=== PATIENT | male | born 1970 | race Caucasian/White ===

== ENCOUNTER → 2016-11-29 | Outpatient (CLI) | payer BC ==
--- NOTE | 2016-11-29 12:37 | REP ---
Right wrist series: Four views. History: Pain in the right wrist. Injury in a fall. Findings: Four views right wrist show cyst formation in the triquetrum, distal ulna, and spur formation in the distal radioulnar joint consistent with degenerative change. No fracture or subluxation is seen. There is old post-traumatic deformity of the distal end of the fifth metacarpal. Impression: No acute fracture noted. Signed by Yvon Storey MD 11/29/2016 02:07 P
== END ==
LOC: M ADAMS 12:05
PROVIDERS: ATTEND Physician Assistant
DX: M25.531 Pain in right wrist (principal)

== ENCOUNTER 2016-12-14 05:21 | Emergency (ER) | payer BC ==
[2016-12-14] MEDS ORDERED: ONDANSETRON 4MG/2ML VIAL (J2405) As Ordered ONE (07:37)
[2016-12-14 07:48] LABS: BASO % 0.2 % (0.0-1.0); EOS # 0.1 K/mm3 (0.0-0.50); EOS % 1.3 % (0.0-3.0); LARGE UNSTAINED CELL # 0.1 K/mm3 (0.0-0.4); LARGE UNSTAINED CELL % 1.3 % (0.0-4.0); LYMPH # 0.5 K/mm3 (1.5-4.5); MEAN CORPUSCULAR HGB CONC 34.1 g/dl (32.0-36.5); MEAN CORPUSCULAR VOLUME 90.8 fl (80.0-96.0); MONO # 0.4 K/mm3 (0.0-0.8); NEUTROPHILS # 9.3 K/mm3 (1.8-7.7); NEUTROPHILS % 88.2 % (36.0-66.0); PLATELET COUNT, AUTOMATED 264 k/mm3 (150-450); RED CELL DISTRIBUTION WIDTH 12.8 % (11.5-14.5); WHITE BLOOD COUNT 10.5 K/mm3 (4.0-10.0)
[2016-12-14 07:52] LABS: ALBUMIN 4.1 GM/DL (3.2-5.2); ALBUMIN/GLOBULIN RATIO 1.32 (1.00-1.93); ALKALINE PHOSPHATASE 99 U/L (45-117); ALT/SGPT 28 U/L (12-78); ANION GAP 9 MEQ/L (8-16); AST/SGOT 22 U/L (15-37); BILIRUBIN,DIRECT 0.2 MG/DL (0.0-0.2); BILIRUBIN,TOTAL 0.9 MG/DL (0.2-1.0); BLOOD UREA NITROGEN 21 MG/DL (7-18); CALCIUM LEVEL 9.1 MG/DL (8.5-10.1); CARBON DIOXIDE LEVEL 26 MEQ/L (21-32); CHLORIDE LEVEL 106 MEQ/L (98-107); GLOMERULAR FILTRATION RATE > 60.0 (>60); GLUCOSE, FASTING 141 MG/DL (70-105); SODIUM LEVEL 141 MEQ/L (136-145); TOTAL PROTEIN 7.2 GM/DL (6.4-8.2)
--- NOTE | 2016-12-14 09:01 | EDDOCDS ---
Nurse's Notes [facility] Name: Fred Angulo Age: 46 yrs Sex: Male : 1970 Arrival Date: 12/14/2016 Time: 05:21 Bed 5 Private MD: Diagnosis: Nausea and vomiting Presentation: 12/14 05:28 Presenting complaint: Patient states: he started with nausea and vomiting no diarrhea cz about 7-8 hours ago complains of feeling shaky hyperventilating in triage.pt denies abdominal pain has epigastric pain from vomiting. Adult Sepsis Screening: The patient does not have new or worsening altered mentation. Patient has a respiratory rate of greater than or equal to 22 (1 point). Systolic blood pressure is greater than 100. Patient has a qSOFA score of 0- Negative Sepsis Screen. Suicide/Homicide risk assessment- the patient denies having any suicidal and/or homicidal ideations and does not present with any other emotional, behavioral or mental health complaints. Status: Patient is not a shipping services sales representative or dependent. Transition of care: patient was not received from another setting of care. 05:28 Acuity: MABLE Level 3 cz 05:28 Method Of Arrival: Wheelchair cz Triage Assessment: 05:32 General: Appears distressed, uncomfortable, Behavior is anxious. Pain: Location: chest. cz HIV screening NA for this visit Offered previously. Historical: - Allergies: No known drug Allergies; - Home Meds: 1. aspirin 81 mg Oral chew 1 tab once daily 2. Albuterol Inhl as needed 3. Bupropion Oral once daily 4. Claritin 10 mg Oral tab 1 tab once daily 5. Lisinopril Oral once daily 6. Prilosec 20 mg oral cpDR once daily - PMHx: Anxiety; GERD; Hypertension; Seasonal Allergies; - PSHx: right bicept repair; - Social history: Smoking status: Patient states former smoker of tobacco. No barriers to communication noted, The patient speaks fluent Frisian, Speaks appropriately for age. - Family history: Not pertinent. - : The pt / caregiver states he / she is not on anticoagulants. Home medication list is obtained from the patient. - Exposure Risk Screening:: None identified. Screenin:03 Screening information is obtained from the patient. Fall risk: No risks identified. ko2 Assistance ADL's: requires no assistance with activities of daily living. Abuse/DV Screen: The patient / caregiver reports he/she is: not in a situation that causes fear, pain or injury. Nutritional screening: No deficits noted. Advance Directives: Currently, there is no health care proxy. There is no active DNR order. There is no living will. There is no Power of Autocutter. home support is adequate. Assessment: 06:03 General: Appears distressed, Behavior is anxious. Pain: Denies pain. Neurological: ko2 Level of Consciousness is awake, alert. Respiratory: Airway is patent Respiratory effort is even, unlabored, Respiratory pattern is regular, symmetrical. GI: Abdomen is non- distended Bowel sounds present X 4 quads. Abd is soft and non tender. Derm: No deficits noted. 07:43 General: Appears in no apparent distress, Behavior is appropriate for age, cooperative. srm Pain: Pain currently is 1 out of 10 on a pain scale. Neurological: No deficits noted. EENT: No deficits noted. Respiratory: Airway is patent Respiratory effort is even, unlabored, Breath sounds are clear bilaterally. GI: Abdomen is non- distended Bowel sounds present X 4 quads. Abd is soft and non tender X 4 quads. 08:21 General: pt states he feels much better. popsicle given per md. srm 08:40 General: PT TOLERATED POPSICLE. . srm 08:59 Reassessment: Patient appears in no apparent distress at this time. Patient states srm feeling better. Patient states symptoms have improved. General: Appears in no apparent distress, Behavior is appropriate for age, cooperative. Vital Signs: 05:32 BP 152 / 72; Pulse 97; Resp 20; Temp 97.7; Pulse Ox 100% on R/A; Weight 102.06 kg; cz Height 5 ft. 11 in. (180.34 cm); 08:19 BP 127 / 73; Pulse 86; Resp 18; Pulse Ox 98% on R/A; srm 08:59 BP 126 / 70; Pulse 86; Resp 18; Temp 100.1; Pulse Ox 98% ; Pain 1/10; srm 05:32 Body Mass Index 31.38 (102.06 kg, 180.34 cm) cz Vitals: 05:32 Log In Time: December 14, 2016 at 05:20. ED Course: 05:22 Patient visited by Allison Morgan. gjb 05:22 Patient moved to Waiting gjb 05:24 Patient moved to Triage 1 cz 05:30 Triage Initiated cz 05:44 Patient moved to 5 cz 06:06 Patient visited by Daniella Meier RN. ko2 06:16 Inserted saline lock: 20 gauge in left antecubital area and blood collected. The ko2 patient tolerated the procedure well. 07:00 Patient visited by Daniella Meier RN. ko2 07:06 Report received from Loraine Delcid RN. srm 07:21 Vargas Luong MD is Attending Physician. br1 07:31 Patient visited by Vargas Luong MD. br1 07:36 Lipase Sent. srm 07:36 Liver Profile Sent. srm 07:36 BMP Sent. srm 07:36 CBC with Diff Sent. srm 07:43 The patient / caregiver is instructed regarding the plan of care and ED course. srm 07:44 Patient visited by Nanette Foster RN. srm 08:19 Patient visited by Nanette Foster RN. srm 08:22 Patient visited by Nanette Foster RN. srm 08:41 Patient visited by Nanette Foster RN. srm 08:48 Patient visited by Vargas Luong MD. br1 08:51 Arvin Cervantes MD is Referral Physician. br1 08:59 Discontinued lock intact, bleeding controlled, pressure dressing applied, No srm redness/swelling at site. No procedures done that require assistance. Administered Medications: 07:43 Drug: NS 0.9% 1000 ml [sodium chloride 0.9 % intravenous solution] Route: IV; Rate: srm bolus; Site: left antecubital; 08:59 Follow up: BP 126 / 70; Pulse 86 bpm; Resp 18 bpm; Temp 100.1; Pulse Ox 98% ; Pain 1/10 srm Adult; IV Status: Completed infusion 07:43 Drug: Ondansetron 4 mg [ondansetron HCl 2 mg/mL intravenous solution (2 mL)] Route: srm IVP; Site: left antecubital; 08:19 Follow up: BP 127 / 73; Pulse 86 bpm; Resp 18 bpm; Pulse Ox 98% RA; Response: Nausea is srm resolved 08:59 Not Given (dischraged homee): NS 0.9% 1000 ml IV at 150 mL/hr continuous srm Intake: 08:41 PO: 90.00ml; Total: 90.00ml. srm 08:59 IV: 1000.00ml (NS); Total: 1090.00ml. srm 08:41 popsicle srm Order Results: Lab Order: CBC with Diff; SPEC'M 12/14/16 06:02 Test: WHITE BLOOD COUNT; Value: 10.5; Range: 4.0-10.0; Abnormal: Above high normal; Units: K/mm3; Status: F Test: RED BLOOD COUNT; Value: 5.23; Range: 4.30-6.10; Units: M/mm3; Status: F Test: HEMOGLOBIN; Value: 16.2; Range: 14.0-18.0; Units: g/dl; Status: F Test: HEMATOCRIT; Value: 47.4; Range: 42.0-52.0; Units: %; Status: F Test: MEAN CORPUSCULAR VOLUME; Value: 90.8; Range: 80.0-96.0; Units: fl; Status: F Test: MEAN CORPUSCULAR HEMOGLOBIN; Value: 31.0; Range: 27.0-33.0; Units: pg; Status: F Test: MEAN CORPUSCULAR HGB CONC; Value: 34.1; Range: 32.0-36.5; Units: g/dl; Status: F Test: RED CELL DISTRIBUTION WIDTH; Value: 12.8; Range: 11.5-14.5; Units: %; Status: F Test: PLATELET COUNT, AUTOMATED; Value: 264; Range: 150-450; Units: k/mm3; Status: F Test: NEUTROPHILS %; Value: 88.2; Range: 36.0-66.0; Abnormal: Above high normal; Units: %; Status: F Test: LYMPH %; Value: 5.0; Range: 24.0-44.0; Abnormal: Below low normal; Units: %; Status: F Test: MONO %; Value: 4.0; Range: 0.0-5.0; Units: %; Status: F Test: EOS %; Value: 1.3; Range: 0.0-3.0; Units: %; Status: F Test: BASO %; Value: 0.2; Range: 0.0-1.0; Units: %; Status: F Test: LARGE UNSTAINED CELL %; Value: 1.3; Range: 0.0-4.0; Units: %; Status: F Test: NEUTROPHILS #; Value: 9.3; Range: 1.8-7.7; Abnormal: Above high normal; Units: K/mm3; Status: F Test: LYMPH #; Value: 0.5; Range: 1.5-4.5; Abnormal: Below low normal; Units: K/mm3; Status: F Test: MONO #; Value: 0.4; Range: 0.0-0.8; Units: K/mm3; Status: F Test: EOS #; Value: 0.1; Range: 0.0-0.50; Units: K/mm3; Status: F Test: BASO #; Value: 0.0; Range: 0.0-0.2; Units: K/mm3; Status: F Test: LARGE UNSTAINED CELL #; Value: 0.1; Range: 0.0-0.4; Units: K/mm3; Status: F Lab Order: [facility]; SPEC'M 12/14/16 06:02 Test: GLUCOSE, FASTING; Value: 141; Range: 70-105; Abnormal: Above high normal; Units: MG/DL; Status: F Test: BLOOD UREA NITROGEN; Value: 21; Range: 7-18; Abnormal: Above high normal; Units: MG/DL; Status: F Test: CREATININE FOR GFR; Value: 1.10; Range: 0.70-1.30; Units: MG/DL; Status: F Test: GLOMERULAR FILTRATION RATE; Value: > 60.0; Range: >60; Status: F Test: SODIUM LEVEL; Value: 141; Range: 136-145; Units: MEQ/L; Status: F Test: POTASSIUM SERUM; Value: 4.0; Range: 3.5-5.1; Units: MEQ/L; Status: F Test: CHLORIDE LEVEL; Value: 106; Range: 98-107; Units: MEQ/L; Status: F Test: CARBON DIOXIDE LEVEL; Value: 26; Range: 21-32; Units: MEQ/L; Status: F Test: ANION GAP; Value: 9; Range: 8-16; Units: MEQ/L; Status: F Test: CALCIUM LEVEL; Value: 9.1; Range: 8.5-10.1; Units: MG/DL; Status: F Test Note: ; Units are mL/min/1.73 m2 Chronic Kidney Disease Staging per NKF: Stage I & II GFR >=60 Normal to Mildly Decreased Stage III GFR 30-59 Moderately Decreased Stage IV GFR 15-29 Severely Decreased Stage V GFR <15 Very Little GFR Left ESRD GFR <15 on HAND [employer]IG[employer]ER Lab Order: Liver Profile; SPEC'M 12/14/16 06:02 Test: AST/SGOT; Value: 22; Range: 15-37; Units: U/L; Status: F Test: ALT/SGPT; Value: 28; Range: 12-78; Units: U/L; Status: F Test: ALKALINE PHOSPHATASE; Value: 99; Range: 45-117; Units: U/L; Status: F Test: BILIRUBIN,TOTAL; Value: 0.9; Range: 0.2-1.0; Units: MG/DL; Status: F Test: BILIRUBIN,DIRECT; Value: 0.2; Range: 0.0-0.2; Units: MG/DL; Status: F Test: TOTAL PROTEIN; Value: 7.2; Range: 6.4-8.2; Units: GM/DL; Status: F Test: ALBUMIN; Value: 4.1; Range: 3.2-5.2; Units: GM/DL; Status: F Test: ALBUMIN/GLOBULIN RATIO; Value: 1.32; Range: 1.00-1.93; Status: F Lab Order: Lipase; SPEC'M 12/14/16 06:02 Test: LIPASE; Value: 98; Range: 73-393; Units: U/L; Status: F Outcome: 08:51 Discharge ordered by Provider. br1 08:59 Discharge Assessment: Patient awake, alert and oriented x 3. No cognitive and/or srm functional deficits noted. Patient verbalized understanding of disposition instructions. patient administered narcotics - no. The following High Risk Discharge criteria are identified: None. Discharged to home ambulatory, with significant other. Condition: stable Condition: improved. Discharge instructions given to patient, Instructed on discharge instructions, follow up and referral plans. medication usage, diet, Demonstrated understanding of instructions, medications, Pt was receptive of discharge instructions/ teaching. Prescriptions given X 1. No special radiology studies were completed. Property sent home with patient. 09:00 Patient left the ED. srm Signatures: Nanette Foster, RN RN srm Omer [place], RN RN Vargas Acosta MD MD br1 Daniella Meier RN RN [email or web address] Allison Morgan MTDD
--- NOTE | 2016-12-14 09:01 | EDDOCDS ---
Physician Documentation [facility] Name: Fred Angulo Age: 46 yrs Sex: Male : 1970 Arrival Date: 12/14/2016 Time: 05:21 Bed 5 Private MD: Disposition: 12/14/16 08:51 Discharged to Home/Self Care. Impression: Nausea and vomiting. - Condition is Stable. - Discharge Instructions: Nausea and Vomiting. - Prescriptions for ZOFRAN ODT 4 mg - dissolve 1 tablet by ORAL route 4 times per day As needed do not chew, do not swallow whole; 10 tablet. - Medication Reconciliation, Local Pharmacy Hours form. - Follow up: Arvin Cervantes MD; When: 2 - 3 days; Reason: Recheck today's complaints. - Problem is new. - Symptoms have improved. - Notes: You were seen in the ED for nausea and vomiting. Bloodwork showed no other acute findings. You were treated and improved with fluids and medications as well. As you are feeling better you may return home to follow up with your primary doctor for recheck this week. Call your doctor to arrange to be seen. Take Zofran as needed for nausea and encourage plenty of clear liquids, then advance your diet as tolerated. Return to the ED for any abdominal pain, fever, blood in the vomit or stool, inability to tolerate oral fluids or any other concerns. Historical: - Allergies: No known drug Allergies; - Home Meds: 1. aspirin 81 mg Oral chew 1 tab once daily 2. Albuterol Inhl as needed 3. Bupropion Oral once daily 4. Claritin 10 mg Oral tab 1 tab once daily 5. Lisinopril Oral once daily 6. Prilosec 20 mg oral cpDR once daily - PMHx: Anxiety; GERD; Hypertension; Seasonal Allergies; - PSHx: right bicept repair; - Social history: Smoking status: Patient states former smoker of tobacco. No barriers to communication noted, The patient speaks fluent Korean, Speaks appropriately for age. - Family history: Not pertinent. - : The pt / caregiver states he / she is not on anticoagulants. Home medication list is obtained from the patient. - Exposure Risk Screening:: None identified. Vital Signs: 12/14 05:32 BP 152 / 72; Pulse 97; Resp 20; Temp 97.7; Pulse Ox 100% on R/A; Weight 102.06 kg / 225 cz lbs; Height 5 ft. 11 in. (180.34 cm); 08:19 BP 127 / 73; Pulse 86; Resp 18; Pulse Ox 98% on R/A; srm 08:59 BP 126 / 70; Pulse 86; Resp 18; Temp 100.1; Pulse Ox 98% ; Pain 1/10; srm 05:32 Body Mass Index 31.38 (102.06 kg, 180.34 cm) cz MDM: 07:31 IV Saline Lock ordered. br1 07:31 NS 0.9% 1000 ml IV at bolus once ordered. br1 07:31 NS 0.9% 1000 ml IV at 150 mL/hr continuous ordered. br1 07:31 Ondansetron 4 mg IVP once ordered. br1 07:32 CBC with Diff Ordered. EDMS 07:32 BMP Ordered. EDMS 07:32 Liver Profile Ordered. EDMS 07:32 Lipase Ordered. EDMS 08:09 Financial registration complete. lg 08:22 Fluid Challenge ordered. srm 08:36 CBC with Diff Reviewed. br1 08:36 BMP Reviewed. br1 08:36 Liver Profile Reviewed. br1 08:36 Lipase Reviewed. br1 Administered Medications: 07:43 Drug: NS 0.9% 1000 ml [sodium chloride 0.9 % intravenous solution] Route: IV; Rate: srm bolus; Site: left antecubital; 08:59 Follow up: BP 126 / 70; Pulse 86 bpm; Resp 18 bpm; Temp 100.1; Pulse Ox 98% ; Pain 1/10 srm Adult; IV Status: Completed infusion 07:43 Drug: Ondansetron 4 mg [ondansetron HCl 2 mg/mL intravenous solution (2 mL)] Route: srm IVP; Site: left antecubital; 08:19 Follow up: BP 127 / 73; Pulse 86 bpm; Resp 18 bpm; Pulse Ox 98% RA; Response: Nausea is srm resolved 08:59 Not Given (dischraged homee): NS 0.9% 1000 ml IV at 150 mL/hr continuous srm Signatures: Dispatcher [employer] EDMS Nanette Foster RN RN srm Omer Samayoa RN RN cz Perla Mills, Reg Reg lg Vargas Luong MD MD br1 [place],Daniella,RN RN ko2 MTDD
--- NOTE | 2016-12-16 10:02 | EDDOCDS ---
Nurse's Notes [facility] Name: Fred Angulo Age: 46 yrs Sex: Male : 1970 Arrival Date: 12/14/2016 Time: 05:21 Bed 5 Private MD: Diagnosis: Nausea and vomiting Presentation: 12/14 05:28 Presenting complaint: Patient states: he started with nausea and vomiting no diarrhea cz about 7-8 hours ago complains of feeling shaky hyperventilating in triage.pt denies abdominal pain has epigastric pain from vomiting. Adult Sepsis Screening: The patient does not have new or worsening altered mentation. Patient has a respiratory rate of greater than or equal to 22 (1 point). Systolic blood pressure is greater than 100. Patient has a qSOFA score of 0- Negative Sepsis Screen. Suicide/Homicide risk assessment- the patient denies having any suicidal and/or homicidal ideations and does not present with any other emotional, behavioral or mental health complaints. Status: Patient is not a floor service worker spring or dependent. Transition of care: patient was not received from another setting of care. 05:28 Acuity: MABLE Level 3 cz 05:28 Method Of Arrival: Wheelchair cz Triage Assessment: 05:32 General: Appears distressed, uncomfortable, Behavior is anxious. Pain: Location: chest. cz HIV screening NA for this visit Offered previously. Historical: - Allergies: No known drug Allergies; - Home Meds: 1. aspirin 81 mg Oral chew 1 tab once daily 2. Albuterol Inhl as needed 3. Bupropion Oral once daily 4. Claritin 10 mg Oral tab 1 tab once daily 5. Lisinopril Oral once daily 6. Prilosec 20 mg oral cpDR once daily - PMHx: Anxiety; GERD; Hypertension; Seasonal Allergies; - PSHx: right bicept repair; - Social history: Smoking status: Patient states former smoker of tobacco. No barriers to communication noted, The patient speaks fluent Kiswahili, Speaks appropriately for age. - Family history: Not pertinent. - : The pt / caregiver states he / she is not on anticoagulants. Home medication list is obtained from the patient. - Exposure Risk Screening:: None identified. Screenin:03 Screening information is obtained from the patient. Fall risk: No risks identified. ko2 Assistance ADL's: requires no assistance with activities of daily living. Abuse/DV Screen: The patient / caregiver reports he/she is: not in a situation that causes fear, pain or injury. Nutritional screening: No deficits noted. Advance Directives: Currently, there is no health care proxy. There is no active DNR order. There is no living will. There is no Power of Dock Superintendent. home support is adequate. Assessment: 06:03 General: Appears distressed, Behavior is anxious. Pain: Denies pain. Neurological: ko2 Level of Consciousness is awake, alert. Respiratory: Airway is patent Respiratory effort is even, unlabored, Respiratory pattern is regular, symmetrical. GI: Abdomen is non- distended Bowel sounds present X 4 quads. Abd is soft and non tender. Derm: No deficits noted. 07:43 General: Appears in no apparent distress, Behavior is appropriate for age, cooperative. srm Pain: Pain currently is 1 out of 10 on a pain scale. Neurological: No deficits noted. EENT: No deficits noted. Respiratory: Airway is patent Respiratory effort is even, unlabored, Breath sounds are clear bilaterally. GI: Abdomen is non- distended Bowel sounds present X 4 quads. Abd is soft and non tender X 4 quads. 08:21 General: pt states he feels much better. popsicle given per md. srm 08:40 General: PT TOLERATED POPSICLE. . srm 08:59 Reassessment: Patient appears in no apparent distress at this time. Patient states srm feeling better. Patient states symptoms have improved. General: Appears in no apparent distress, Behavior is appropriate for age, cooperative. Vital Signs: 05:32 BP 152 / 72; Pulse 97; Resp 20; Temp 97.7; Pulse Ox 100% on R/A; Weight 102.06 kg; cz Height 5 ft. 11 in. (180.34 cm); 08:19 BP 127 / 73; Pulse 86; Resp 18; Pulse Ox 98% on R/A; srm 08:59 BP 126 / 70; Pulse 86; Resp 18; Temp 100.1; Pulse Ox 98% ; Pain 1/10; srm 05:32 Body Mass Index 31.38 (102.06 kg, 180.34 cm) cz Vitals: 05:32 Log In Time: December 14, 2016 at 05:20. ED Course: 05:22 Patient visited by Allison Morgan. gjb 05:22 Patient moved to Waiting gjb 05:24 Patient moved to Triage 1 cz 05:30 Triage Initiated cz 05:44 Patient moved to 5 cz 06:06 Patient visited by Daniella Meier RN. ko2 06:16 Inserted saline lock: 20 gauge in left antecubital area and blood collected. The ko2 patient tolerated the procedure well. 07:00 Patient visited by Daniella Meier RN. ko2 07:06 Report received from Loraine Delcid RN. srm 07:21 Vargas Luong MD is Attending Physician. br1 07:31 Patient visited by Vargas Luong MD. br1 07:36 Lipase Sent. srm 07:36 Liver Profile Sent. srm 07:36 BMP Sent. srm 07:36 CBC with Diff Sent. srm 07:43 The patient / caregiver is instructed regarding the plan of care and ED course. srm 07:44 Patient visited by Nanette Foster RN. srm 08:19 Patient visited by Nanette Foster RN. srm 08:22 Patient visited by Nanette Foster RN. srm 08:41 Patient visited by Nanette Foster RN. srm 08:48 Patient visited by Vargas Luong MD. br1 08:51 Arvin Cervantes MD is Referral Physician. br1 08:59 Discontinued lock intact, bleeding controlled, pressure dressing applied, No srm redness/swelling at site. No procedures done that require assistance. 09:03 Patient name changed from Fred\S\Lloyd\S\Kev\S\ to Fred\S\Jt\S\Kev. EDMS 09:04 [facility] Payment Agreement was scanned into [employer] and attached to record. lg 19:45 T-Sheet-- Draft Copy was scanned into [employer] and attached to record. klr Administered Medications: 07:43 Drug: NS 0.9% 1000 ml [sodium chloride 0.9 % intravenous solution] Route: IV; Rate: srm bolus; Site: left antecubital; 08:59 Follow up: BP 126 / 70; Pulse 86 bpm; Resp 18 bpm; Temp 100.1; Pulse Ox 98% ; Pain 1/10 srm Adult; IV Status: Completed infusion 07:43 Drug: Ondansetron 4 mg [ondansetron HCl 2 mg/mL intravenous solution (2 mL)] Route: srm IVP; Site: left antecubital; 08:19 Follow up: BP 127 / 73; Pulse 86 bpm; Resp 18 bpm; Pulse Ox 98% RA; Response: Nausea is srm resolved 08:59 Not Given (dischraged homee): NS 0.9% 1000 ml IV at 150 mL/hr continuous srm Intake: 08:41 PO: 90.00ml; Total: 90.00ml. srm 08:59 IV: 1000.00ml (NS); Total: 1090.00ml. srm 08:41 popsicle srm Order Results: Lab Order: CBC with Diff; SPEC'M 12/14/16 06:02 Test: WHITE BLOOD COUNT; Value: 10.5; Range: 4.0-10.0; Abnormal: Above high normal; Units: K/mm3; Status: F Test: RED BLOOD COUNT; Value: 5.23; Range: 4.30-6.10; Units: M/mm3; Status: F Test: HEMOGLOBIN; Value: 16.2; Range: 14.0-18.0; Units: g/dl; Status: F Test: HEMATOCRIT; Value: 47.4; Range: 42.0-52.0; Units: %; Status: F Test: MEAN CORPUSCULAR VOLUME; Value: 90.8; Range: 80.0-96.0; Units: fl; Status: F Test: MEAN CORPUSCULAR HEMOGLOBIN; Value: 31.0; Range: 27.0-33.0; Units: pg; Status: F Test: MEAN CORPUSCULAR HGB CONC; Value: 34.1; Range: 32.0-36.5; Units: g/dl; Status: F Test: RED CELL DISTRIBUTION WIDTH; Value: 12.8; Range: 11.5-14.5; Units: %; Status: F Test: PLATELET COUNT, AUTOMATED; Value: 264; Range: 150-450; Units: k/mm3; Status: F Test: NEUTROPHILS %; Value: 88.2; Range: 36.0-66.0; Abnormal: Above high normal; Units: %; Status: F Test: LYMPH %; Value: 5.0; Range: 24.0-44.0; Abnormal: Below low normal; Units: %; Status: F Test: MONO %; Value: 4.0; Range: 0.0-5.0; Units: %; Status: F Test: EOS %; Value: 1.3; Range: 0.0-3.0; Units: %; Status: F Test: BASO %; Value: 0.2; Range: 0.0-1.0; Units: %; Status: F Test: LARGE UNSTAINED CELL %; Value: 1.3; Range: 0.0-4.0; Units: %; Status: F Test: NEUTROPHILS #; Value: 9.3; Range: 1.8-7.7; Abnormal: Above high normal; Units: K/mm3; Status: F Test: LYMPH #; Value: 0.5; Range: 1.5-4.5; Abnormal: Below low normal; Units: K/mm3; Status: F Test: MONO #; Value: 0.4; Range: 0.0-0.8; Units: K/mm3; Status: F Test: EOS #; Value: 0.1; Range: 0.0-0.50; Units: K/mm3; Status: F Test: BASO #; Value: 0.0; Range: 0.0-0.2; Units: K/mm3; Status: F Test: LARGE UNSTAINED CELL #; Value: 0.1; Range: 0.0-0.4; Units: K/mm3; Status: F Lab Order: [facility]; SPEC'M 12/14/16 06:02 Test: GLUCOSE, FASTING; Value: 141; Range: 70-105; Abnormal: Above high normal; Units: MG/DL; Status: F Test: BLOOD UREA NITROGEN; Value: 21; Range: 7-18; Abnormal: Above high normal; Units: MG/DL; Status: F Test: CREATININE FOR GFR; Value: 1.10; Range: 0.70-1.30; Units: MG/DL; Status: F Test: GLOMERULAR FILTRATION RATE; Value: > 60.0; Range: >60; Status: F Test: SODIUM LEVEL; Value: 141; Range: 136-145; Units: MEQ/L; Status: F Test: POTASSIUM SERUM; Value: 4.0; Range: 3.5-5.1; Units: MEQ/L; Status: F Test: CHLORIDE LEVEL; Value: 106; Range: 98-107; Units: MEQ/L; Status: F Test: CARBON DIOXIDE LEVEL; Value: 26; Range: 21-32; Units: MEQ/L; Status: F Test: ANION GAP; Value: 9; Range: 8-16; Units: MEQ/L; Status: F Test: CALCIUM LEVEL; Value: 9.1; Range: 8.5-10.1; Units: MG/DL; Status: F Test Note: ; Units are mL/min/1.73 m2 Chronic Kidney Disease Staging per NKF: Stage I & II GFR >=60 Normal to Mildly Decreased Stage III GFR 30-59 Moderately Decreased Stage IV GFR 15-29 Severely Decreased Stage V GFR <15 Very Little GFR Left ESRD GFR <15 on CHIEF OPERATIONS OFFICER Lab Order: Liver Profile; SPEC'M 12/14/16 06:02 Test: AST/SGOT; Value: 22; Range: 15-37; Units: U/L; Status: F Test: ALT/SGPT; Value: 28; Range: 12-78; Units: U/L; Status: F Test: ALKALINE PHOSPHATASE; Value: 99; Range: 45-117; Units: U/L; Status: F Test: BILIRUBIN,TOTAL; Value: 0.9; Range: 0.2-1.0; Units: MG/DL; Status: F Test: BILIRUBIN,DIRECT; Value: 0.2; Range: 0.0-0.2; Units: MG/DL; Status: F Test: TOTAL PROTEIN; Value: 7.2; Range: 6.4-8.2; Units: GM/DL; Status: F Test: ALBUMIN; Value: 4.1; Range: 3.2-5.2; Units: GM/DL; Status: F Test: ALBUMIN/GLOBULIN RATIO; Value: 1.32; Range: 1.00-1.93; Status: F Lab Order: Lipase; SPEC'M 12/14/16 06:02 Test: LIPASE; Value: 98; Range: 73-393; Units: U/L; Status: F Outcome: 08:51 Discharge ordered by Provider. br1 08:59 Discharge Assessment: Patient awake, alert and oriented x 3. No cognitive and/or srm functional deficits noted. Patient verbalized understanding of disposition instructions. patient administered narcotics - no. The following High Risk Discharge criteria are identified: None. Discharged to home ambulatory, with significant other. Condition: stable Condition: improved. Discharge instructions given to patient, Instructed on discharge instructions, follow up and referral plans. medication usage, diet, Demonstrated understanding of instructions, medications, Pt was receptive of discharge instructions/ teaching. Prescriptions given X 1. No special radiology studies were completed. Property sent home with patient. 09:00 Patient left the ED. srm Signatures: Dispatcher [employer] EDMS Nanette Foster RN RN srm Zecher, Calvin, RN RN Perla Hart, Renny Lawson Vargas Luong MD MD br1 Daniella Meier RN RN [email or web address] Allison Morgan Kathie klr Chart Complete MTDDavey
--- NOTE | 2016-12-16 10:02 | EDDOCDS ---
Physician Documentation [facility] Name: Fred Angulo Age: 46 yrs Sex: Male : 1970 Arrival Date: 12/14/2016 Time: 05:21 Bed 5 Private MD: Disposition: 12/14/16 08:51 Discharged to Home/Self Care. Impression: Nausea and vomiting. - Condition is Stable. - Discharge Instructions: Nausea and Vomiting. - Prescriptions for ZOFRAN ODT 4 mg - dissolve 1 tablet by ORAL route 4 times per day As needed do not chew, do not swallow whole; 10 tablet. - Medication Reconciliation, Local Pharmacy Hours form. - Follow up: Arvin Cervantes MD; When: 2 - 3 days; Reason: Recheck today's complaints. - Problem is new. - Symptoms have improved. - Notes: You were seen in the ED for nausea and vomiting. Bloodwork showed no other acute findings. You were treated and improved with fluids and medications as well. As you are feeling better you may return home to follow up with your primary doctor for recheck this week. Call your doctor to arrange to be seen. Take Zofran as needed for nausea and encourage plenty of clear liquids, then advance your diet as tolerated. Return to the ED for any abdominal pain, fever, blood in the vomit or stool, inability to tolerate oral fluids or any other concerns. Historical: - Allergies: No known drug Allergies; - Home Meds: 1. aspirin 81 mg Oral chew 1 tab once daily 2. Albuterol Inhl as needed 3. Bupropion Oral once daily 4. Claritin 10 mg Oral tab 1 tab once daily 5. Lisinopril Oral once daily 6. Prilosec 20 mg oral cpDR once daily - PMHx: Anxiety; GERD; Hypertension; Seasonal Allergies; - PSHx: right bicept repair; - Social history: Smoking status: Patient states former smoker of tobacco. No barriers to communication noted, The patient speaks fluent Sami, Speaks appropriately for age. - Family history: Not pertinent. - : The pt / caregiver states he / she is not on anticoagulants. Home medication list is obtained from the patient. - Exposure Risk Screening:: None identified. Vital Signs: 12/14 05:32 BP 152 / 72; Pulse 97; Resp 20; Temp 97.7; Pulse Ox 100% on R/A; Weight 102.06 kg / 225 cz lbs; Height 5 ft. 11 in. (180.34 cm); 08:19 BP 127 / 73; Pulse 86; Resp 18; Pulse Ox 98% on R/A; srm 08:59 BP 126 / 70; Pulse 86; Resp 18; Temp 100.1; Pulse Ox 98% ; Pain 1/10; srm 05:32 Body Mass Index 31.38 (102.06 kg, 180.34 cm) cz MDM: 07:31 IV Saline Lock ordered. br1 07:31 NS 0.9% 1000 ml IV at bolus once ordered. br1 07:31 NS 0.9% 1000 ml IV at 150 mL/hr continuous ordered. br1 07:31 Ondansetron 4 mg IVP once ordered. br1 07:32 CBC with Diff Ordered. EDMS 07:32 BMP Ordered. EDMS 07:32 Liver Profile Ordered. EDMS 07:32 Lipase Ordered. EDMS 08:09 Financial registration complete. lg 08:22 Fluid Challenge ordered. srm 08:36 CBC with Diff Reviewed. br1 08:36 BMP Reviewed. br1 08:36 Liver Profile Reviewed. br1 08:36 Lipase Reviewed. br1 09:04 [facility] Payment Agreement was scanned into [employer] and attached to record. lg 19:45 T-Sheet-- Draft Copy was scanned into [employer] and attached to record. klr Administered Medications: 07:43 Drug: NS 0.9% 1000 ml [sodium chloride 0.9 % intravenous solution] Route: IV; Rate: srm bolus; Site: left antecubital; 08:59 Follow up: BP 126 / 70; Pulse 86 bpm; Resp 18 bpm; Temp 100.1; Pulse Ox 98% ; Pain 1/10 srm Adult; IV Status: Completed infusion 07:43 Drug: Ondansetron 4 mg [ondansetron HCl 2 mg/mL intravenous solution (2 mL)] Route: srm IVP; Site: left antecubital; 08:19 Follow up: BP 127 / 73; Pulse 86 bpm; Resp 18 bpm; Pulse Ox 98% RA; Response: Nausea is srm resolved 08:59 Not Given (dischraged homee): NS 0.9% 1000 ml IV at 150 mL/hr continuous srm Signatures: Dispatcher [employer] EDMS Nanette Foster, RN RN Omer Serna RN RN cz Perla Mills, Reg Reg lg Vargas Luong MD MD br1 Daniella Meier RN RN [email or web address] Shawanda Jose The chart was reviewed and I authenticate all verbal orders and agree with the evaluation and treatment provided.Attachments: 09:04 [facility] Payment Agreement lg 19:45 T-Sheet-- Draft Copy klr Chart Complete MTDD
--- NOTE | 2016-12-16 10:02 | EDDOCDS ---
Physician Documentation [facility] Name: Fred Angulo Age: 46 yrs Sex: Male : 1970 Arrival Date: 12/14/2016 Time: 05:21 Bed 5 Private MD: Disposition: 12/14/16 08:51 Discharged to Home/Self Care. Impression: Nausea and vomiting. - Condition is Stable. - Discharge Instructions: Nausea and Vomiting. - Prescriptions for ZOFRAN ODT 4 mg - dissolve 1 tablet by ORAL route 4 times per day As needed do not chew, do not swallow whole; 10 tablet. - Medication Reconciliation, Local Pharmacy Hours form. - Follow up: Arvin Cervantes MD; When: 2 - 3 days; Reason: Recheck today's complaints. - Problem is new. - Symptoms have improved. - Notes: You were seen in the ED for nausea and vomiting. Bloodwork showed no other acute findings. You were treated and improved with fluids and medications as well. As you are feeling better you may return home to follow up with your primary doctor for recheck this week. Call your doctor to arrange to be seen. Take Zofran as needed for nausea and encourage plenty of clear liquids, then advance your diet as tolerated. Return to the ED for any abdominal pain, fever, blood in the vomit or stool, inability to tolerate oral fluids or any other concerns. Historical: - Allergies: No known drug Allergies; - Home Meds: 1. aspirin 81 mg Oral chew 1 tab once daily 2. Albuterol Inhl as needed 3. Bupropion Oral once daily 4. Claritin 10 mg Oral tab 1 tab once daily 5. Lisinopril Oral once daily 6. Prilosec 20 mg oral cpDR once daily - PMHx: Anxiety; GERD; Hypertension; Seasonal Allergies; - PSHx: right bicept repair; - Social history: Smoking status: Patient states former smoker of tobacco. No barriers to communication noted, The patient speaks fluent Czech, Speaks appropriately for age. - Family history: Not pertinent. - : The pt / caregiver states he / she is not on anticoagulants. Home medication list is obtained from the patient. - Exposure Risk Screening:: None identified. Vital Signs: 12/14 05:32 BP 152 / 72; Pulse 97; Resp 20; Temp 97.7; Pulse Ox 100% on R/A; Weight 102.06 kg / 225 cz lbs; Height 5 ft. 11 in. (180.34 cm); 08:19 BP 127 / 73; Pulse 86; Resp 18; Pulse Ox 98% on R/A; srm 08:59 BP 126 / 70; Pulse 86; Resp 18; Temp 100.1; Pulse Ox 98% ; Pain 1/10; srm 05:32 Body Mass Index 31.38 (102.06 kg, 180.34 cm) cz MDM: 07:31 IV Saline Lock ordered. br1 07:31 NS 0.9% 1000 ml IV at bolus once ordered. br1 07:31 NS 0.9% 1000 ml IV at 150 mL/hr continuous ordered. br1 07:31 Ondansetron 4 mg IVP once ordered. br1 07:32 CBC with Diff Ordered. EDMS 07:32 BMP Ordered. EDMS 07:32 Liver Profile Ordered. EDMS 07:32 Lipase Ordered. EDMS 08:09 Financial registration complete. lg 08:22 Fluid Challenge ordered. srm 08:36 CBC with Diff Reviewed. br1 08:36 BMP Reviewed. br1 08:36 Liver Profile Reviewed. br1 08:36 Lipase Reviewed. br1 09:04 [facility] Payment Agreement was scanned into [employer] and attached to record. lg 19:45 T-Sheet-- Draft Copy was scanned into [employer] and attached to record. klr Administered Medications: 07:43 Drug: NS 0.9% 1000 ml [sodium chloride 0.9 % intravenous solution] Route: IV; Rate: srm bolus; Site: left antecubital; 08:59 Follow up: BP 126 / 70; Pulse 86 bpm; Resp 18 bpm; Temp 100.1; Pulse Ox 98% ; Pain 1/10 srm Adult; IV Status: Completed infusion 07:43 Drug: Ondansetron 4 mg [ondansetron HCl 2 mg/mL intravenous solution (2 mL)] Route: srm IVP; Site: left antecubital; 08:19 Follow up: BP 127 / 73; Pulse 86 bpm; Resp 18 bpm; Pulse Ox 98% RA; Response: Nausea is srm resolved 08:59 Not Given (dischraged homee): NS 0.9% 1000 ml IV at 150 mL/hr continuous srm Signatures: Dispatcher [employer] EDMS Nanette Foster, RN RN Omer Serna RN RN cz Perla Mills, Reg Reg lg Vargas Luong MD MD br1 Daniella Meier RN RN [email or web address] Shawanda Jose The chart was reviewed and I authenticate all verbal orders and agree with the evaluation and treatment provided.Attachments: 09:04 [facility] Payment Agreement lg 19:45 T-Sheet-- Draft Copy klr Chart Complete MTDD
== END 2016-12-14 09:00 | disposition home or self-care (01) ==
LOC: M ED 05:21
DX: R11.2 Nausea with vomiting, unspecified (principal); F41.9 Anxiety disorder, unspecified; K21.9 Gastro-esophageal reflux disease without esophagitis; I10 Essential (primary) hypertension; J30.2 Other seasonal allergic rhinitis; Z87.891 Personal history of nicotine dependence; Z79.82 Long term (current) use of aspirin; Z92.240 Personal history of inhaled steroid therapy; Z79.899 Other long term (current) drug therapy
CPT/HCPCS: 36415; 80048; 80076; 83690; 85025; 96361; 96374; 99284; J2405

== ENCOUNTER → 2018-09-16 | Outpatient (REF) | payer BC ==
[2018-09-16 19:57] LABS: BASO # 0.1 10^3/uL (0.0-0.2); EOS # 0.3 10^3/uL (0.0-0.50); EOS % 3.2 % (0.0-3.0); HEMATOCRIT 49.9 % (42.0-52.0); HEMOGLOBIN 16.7 g/dl (13.5-17.5); IMMATURE GRANULOCYTE % 0.3 % (0-3.0); LYMPH # 2.1 10^3/uL (1.5-4.5); LYMPH % 26.5 % (24.0-44.0); MEAN CORPUSCULAR HEMOGLOBIN 30.3 pg (27.0-33.0); MEAN CORPUSCULAR HGB CONC 33.5 g/dl (32.0-36.5); MEAN CORPUSCULAR VOLUME 90.4 fl (80.0-96.0); MONO # 0.9 10^3/uL (0.0-0.8); MONO % 11.4 % (0.0-5.0); NEUTROPHILS # 4.5 10^3/uL (1.8-7.7); NEUTROPHILS % 57.6 % (36.0-66.0); PLATELET COUNT, AUTOMATED 293 10^3/uL (150-450); RED BLOOD COUNT 5.52 10^6/uL (4.30-6.10); WHITE BLOOD COUNT 7.7 10^3/uL (4.0-10.0)
[2018-09-16 20:08] LABS: ALBUMIN/GLOBULIN RATIO 1.25 (1.00-1.93); ALKALINE PHOSPHATASE 83 U/L (45-117); ALT/SGPT 30 U/L (12-78); ANION GAP 7 MEQ/L (8-16); AST/SGOT 20 U/L (7-37); BILIRUBIN,TOTAL 0.7 MG/DL (0.2-1.0); BLOOD UREA NITROGEN 18 MG/DL (7-18); CALCIUM LEVEL 9.1 MG/DL (8.5-10.1); CARBON DIOXIDE LEVEL 29 MEQ/L (21-32); CHLORIDE LEVEL 104 MEQ/L (98-107); CREATININE FOR GFR 1.08 MG/DL (0.70-1.30); GLOMERULAR FILTRATION RATE > 60.0 (>60); GLUCOSE, FASTING 97 MG/DL (70-100); POTASSIUM SERUM 4.8 MEQ/L (3.5-5.1); SODIUM LEVEL 140 MEQ/L (136-145); TOTAL PROTEIN 7.2 GM/DL (6.4-8.2)
== END ==
LOC: M LABDRWAD 19:30
DX: R22.1 Localized swelling, mass and lump, neck (principal)
CPT/HCPCS: 80053

== ENCOUNTER → 2018-09-22 | Outpatient (CLI) | payer BC ==
[~2018-09-22] MED LIST: ISOVUE-370 76% 100ML VIAL (Q9967) As Ordered
== END ==
LOC: M RAD 10:41
DX: R09.89 Other specified symptoms and signs involving the circulatory and respiratory systems (principal); R22.1 Localized swelling, mass and lump, neck
CPT/HCPCS: Q9967

== ENCOUNTER → 2020-06-29 | Outpatient (REF) | payer BC | LOC: M LAB REF 09:09 | PROVIDERS: ATTEND Internal Medicine | DX: R68.82 Decreased libido (principal) ==